=== PATIENT | male | born 2000 | race Caucasian/White ===

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

== ENCOUNTER 2018-05-28 16:12 | Observation (INO) | payer OTHER, SELFPAY ==
[~2018-05-28 16:12] MED LIST: Dexamethasone 20 MG/5 ML VIAL ONE; Glycopyrrolate 0.2 MG/ML 5 ML SYRINGE ONE; Iopamidol 370 76% 100 ML VIAL ONE; Iopamidol 370 76% 50 ML VIAL FS ONE; Ketorolac Tromethamine 30 MG/ML VIAL ONE; Ondansetron PF 4 MG/2 ML Vial ONE; PROPOFOL 200 MG/20 ML VIAL ONE
[2018-05-28 17:45] LABS: #Eosinphils 0.1 thou/uL (0.0-0.7); #Lymphocytes 3.1 thou/uL (1.20-3.40); #Monocytes 0.7 thou/uL (0.11-0.59); #Neutrophils 11.3 thou/uL (1.40-6.50); %Basophils 0.2 % (0.0-1.0); %Eosinophils 0.4 % (0.0-10.0); %Lymphocytes 20.3 % (28.0-48.0); %Monocytes 4.8 % (0.0-4.0); %Neutrophils 74.2 % (31.0-61.0); Hemoglobin 17.4 g/dL (14.0-18.0); Mean Corpuscular HGB CONC 33.3 g/dL (32.0-36.0); Mean Corpuscular Hemoglobin 29.7 pg (25.0-35.0); Mean Platelet Volume 8.4 fL (7.4-10.4); Platelet Count 264 thou/uL (130-400); RBC Distribution Width 12.1 % (11.5-14.5); Red Blood Cell (RBC) Count 5.86 mill/uL (4.00-5.20); White Blood Cell (WBC) Count 15.2 thou/uL (4.8-10.8)
[2018-05-28 18:12] LABS: ALT (SGPT) 20 U/L (8-55); AST (SGOT) 18 U/L (10-45); Albumin 4.7 g/dL (3.5-5.0); Alkaline Phosphatase 66 U/L (Less than 750); Anion Gap 12 mmol/L (10-20); BUN (Urea Nitrogen) 11 mg/dL (8.4-21.0); Bilirubin, Total 0.7 mg/dL (0.2-1.2); Calc. Creatinine Clearance 0 mL/min (70-130); Calcium 9.7 mg/dL (7.8-10.44); Carbon Dioxide 29 mmol/L (22-29); Chloride 102 mmol/L (98-107); Estimated GFR-MDRD Greater than 90; Globulin 2.8 g/dL (2.4-3.5); Glucose 100 mg/dL (70-105); Lipase 12 U/L (8-78); Protein, Total 7.5 g/dL (6.0-8.3); Sodium 139 mmol/L (136-145)
[2018-05-28] MEDS ORDERED: Ondansetron PF 4 MG/2 ML Vial ONE (18:18)
[2018-05-28] MEDS ORDERED: Morphine 4 MG/ML VIAL ONE (18:18)
[2018-05-28 18:30] LABS: Bilirubin Negative (Negative); Blood, Urine Negative (Negative); Clarity CLEAR (Clear); Glucose, Urine (Dipstick) Negative (Negative); Leukocyte Negative (Negative); Nitrite Negative (Negative); Protein, Urine (Dipstick) Negative (Neg-Trace); Specific Gravity, Urine 1.025 (1.002-1.036); pH, Urine 6.5 (5.0-9.0)
--- NOTE | 2018-05-28 21:12 | CT ---
CT ABDOMEN AND PELVIS WITH IV CONTRAST: INDICATIONS: Periumbilical abdominal pain. Concern for appendicitis. FINDINGS: The appendix is enlarged, measuring 9 mm. There is mild periappendiceal fluid. There is enhancement of the appendiceal mucosa. No drainable fluid collection is evident. The lung bases are clear. The liver, spleen, pancreas, adrenal glands, and kidneys are normal appear ing. The bladder, rectum, and perirectal soft tissues are unremarkable. No acute osseous abnormality is evident. IMPRESSION: Findings most consistent with early appendicitis. Findings called to Kamilla Mayo, Nurse Practitioner, at 8:35 p.m. on 05/28/2018. CODE CR POS: [facility]
[2018-05-28] MEDS ORDERED: Ertapenem 1 GM in Sodium Chloride 0.9% 100 ML IVPB SCH (21:15)
[2018-05-28] MEDS ORDERED: Bupivacaine/Epinephrine 0.25% 30 ML VIAL ONE (21:15)
[2018-05-28] MEDS ORDERED: Fentanyl 100 MCG/2 ML VIAL ONE (21:47)
--- NOTE | 2018-05-28 22:45 | HP ---
CHIEF COMPLAINT: Abdominal pain. HISTORY: Mr. Delacruz is a 17-year-old man who started to feel sick earlier this afternoon. He state s that he had , but was feeling nauseated, so he canceled that and lay down to take a nap, only turned over onto his side. He had severe pain in his lower abdomen that woke him from sleep. The pa in has been persistent since that time, so he came to the emergency room and was diagnosed with early appendicitis by CT scan. He has not had any fevers or chills, but he has felt warm. No changes in his bowel habits. No ill contacts or travel. PAST MEDICAL HISTORY: GERD. PAST PSYCHIATRIC HISTORY: Bipolar disorder. FAMILY HISTORY: Pancreatic cancer in his grandfather. His grandmother recently had her appendix out . PAST SURGICAL HISTORY: Tonsillectomy when he was sophomore in high school. No problems with anesthe imelda. ALLERGIES: He has no known drug allergies. DIAGNOSTIC AND LABORATORY DATA: CT images show a dilated enhancing appendix with some periappendicea l stranding and no other acute findings. White count is elevated at 15, hematocrit 52, platelets 264 . Electrolytes and LFTs and lipase are unremarkable and UA is clear. PHYSICAL EXAMINATION: VITAL SIGNS: The patient is afebrile. GENERAL: Reveals a healthy appearing young man in no acute distress. He is not flushed or toxic in appearance. He is not jaundiced or icteric. HEENT: Unremarkable. NECK: Supple without lymphadenopathy or thyroid nodules. HEART: Regular in its rate and rhythm without murmurs, rubs, or gallops. LUNGS: Clear to auscultation bilaterally. ABDOMEN: Soft and nondistended. He indicates the point of greatest pain has just below his umbilicu s, but is most tender to palpation in the right lower quadrant. He does not have any rigidity, rebou nd, or guarding. No palpable masses or hernias. EXTREMITIES: Warm and well perfused without edema. NEUROLOGIC: No focal deficits. PSYCHIATRIC: Alert, oriented, and appropriate. ASSESSMENT: Acute appendicitis. PLAN: Laparoscopic appendectomy. Patient's diagnosis and recommended treatment were discussed with him. Inherent risks were also discussed. These include but are not limited to bleeding, infection, risks of anesthesia, damage to nearby structures including bowel and blood vessels, need for open pat sangeetha, need further procedures. He understands that if there is evidence of perforation and a laparos copic washout and drain placement will be necessary. He will need to stay in the hospital for IV ant ibiotics. If he is not perforated, he may be able to be discharged once his mother arrived from out of town. INVanz has been ordered and he has been placed on the OR schedule.
[2018-05-28] MEDS ORDERED: Promethazine HCl 25 MG/ML VIAL SLOW IVP PRN (23:38)
[2018-05-28] MEDS ORDERED: Promethazine HCl 25 MG/ML VIAL IM PRN (23:38)
[2018-05-28] MEDS ORDERED: Ondansetron HCl/PF 4 MG/2 ML Vial IVP PRN (23:38)
[2018-05-29] MEDS ORDERED: Morphine 4 MG/ML VIAL ONE (00:01)
[2018-05-29] MEDS ORDERED: HYDROcodone/Acetaminophen 7.5/325 mg Tablet PO PRN (00:27)
[2018-05-29] MEDS ORDERED: Acetaminophen 325 MG TAB PO PRN ×2 (00:28→00:29)
[2018-05-29] MEDS ORDERED: Ibuprofen 200 MG TAB PO PRN (00:30)
[2018-05-29] MEDS ORDERED: Ibuprofen 600 MG TAB PO PRN (00:31)
[2018-05-29] MEDS ORDERED: Morphine 2 MG/ML SYRINGE SLOW IVP PRN (00:31)
[2018-05-29] MEDS ORDERED: Morphine 4 MG/ML VIAL IV PRN (00:32)
[2018-05-29] MEDS ORDERED: Ondansetron PF 4 MG/2 ML Vial IVP PRN (00:33)
[2018-05-29] MEDS ORDERED: Promethazine 25 MG TAB PO PRN (00:34)
[2018-05-29] MEDS ORDERED: PACU-Morphine 4MG/ML VIAL SLOW IVP PRN ×2 (00:36→00:37)
[2018-05-29] MEDS: Sodium Chloride 0.9% 1,000 ML IV SCH ×2 (02:00→10:34)
[2018-05-29] MEDS: HYDROcodone/Acetaminophen 7.5/325 mg Tablet PO PRN ×2 (02:39→06:40)
[2018-05-29 08:53] VITALS: BP 121/55; TEMP 98.7
--- NOTE | 2018-06-06 18:01 | PDOC.OP ---
Operative Note - Operative Note Operative Note: PROCEDURE: Laparoscopic appendectomy SURGEON: Moise Glez M.D. DATE OF PROCEDURE: 05/28/2018 PREOPERATIVE DIAGNOSIS: Appendicitis POSTOPERATIVE DIAGNOSIS: Appendicitis HISTORY: Patient is a 18-year-old male who presented to the emergency room with abdominal pain. CT showed evidence of acute appendicitis. FINDINGS: Inflamed retrocecal appendix without perforation. DESCRIPTION OF PROCEDURE: After informed consent was obtained and appropriate antibiotics continued, the patient was taken to the operating room and placed in the supine position and general endotracheal anesthesia was administered. The bladder was decompressed with a Casanova catheter and the abdomen was prepped and draped in the standard sterile fashion. Local anesthesia was infused to the skin and subcutaneous tissues superior to the umbilicus. A transverse skin incision was made and a Veress needle placed into the abdominal cavity and carbon dioxide gas insufflated without difficulty. Opening pressure was less than 5. Carbon dioxide gas was insufflated to an intra-abdominal pressure 15 and the patient tolerated this well. The Veress needle was withdrawn and a Harwood port advanced under direct laparoscopic vision into the abdominal cavity. Two additional ports were placed in the suprapubic and left lateral abdomen under direct laparoscopic vision after local anesthesia was infused at these sites. The appendix was identified and appeared inflamed but not perforated. This was located in the retrocecal area and was quite fixed in location. The appendix was grasped by the mesoappendix and the peritoneum lateral to the appendix was sequentially divided allowing the appendix to be elevated. The mesoappendix was then sequentially ligated and divided down to the base of the appendix, which was normal in appearance and was clearly seen to be at the confluence of the tenia. Two Endoloops were placed around the base of the appendix and the appendix was divided between these Endoloops, placed into an EndoCatch bag and drawn out through the suprapubic incision. The suprapubic trocar was then replaced and the operative site was easily irrigated to clear. The suprapubic trocar was removed and the fascia closed under direct laparoscopic vision with a 0 Vicryl suture on a GraNee needle with excellent technical result. The left lateral trocar was then removed and hemostasis verified. Carbon dioxide gas was desufflated through the umbilical trocar which was then removed. The skin incisions were irrigated and additional local anesthesia infused at each site. The skin was closed with 4-0 subcuticular Monocryl sutures and Dermabond dressings were placed. The patient was extubated and taken to the recovery room in good condition. Estimated blood loss was minimal. There were no complications. SPECIMEN: Appendix.
== END 2018-05-29 11:04 | disposition home or self-care (01) ==
LOC: ERS 16:12 → SDC/OP 22:14 → 3SE 05-29 00:44
PROVIDERS: ADMIT Surgery; ATTEND Surgery
PROC: 0DTJ4ZZ Resection of Appendix, Percutaneous Endoscopic Approach (ICD-10-PCS; principal; 2018-05-29)
DX: K35.80 Unspecified acute appendicitis (principal); K21.9 Gastro-esophageal reflux disease without esophagitis
CPT/HCPCS: 36415; 74177; 80053; 81003; 83605; 83690; 85025; 88304; 96361; 96365; 96374; 96375; 96376; G0378; J1100; J1335; J1885; J2270; J2405; J2704; J3010; J7050

== ENCOUNTER 2018-10-27 00:14 | Emergency (ER) | payer OTHER ==
[2018-10-27 00:57] LABS: #Eosinphils 0.1 thou/uL (0.0-0.7); #Lymphocytes 2.6 thou/uL (1.20-3.40); #Monocytes 0.5 thou/uL (0.11-0.59); #Neutrophils 4.7 thou/uL (1.40-6.50); %Basophils 0.6 % (0.0-1.0); %Eosinophils 0.8 % (0.0-10.0); %Monocytes 5.7 % (0.0-4.0); %Neutrophils 59.9 % (31.0-61.0); Hemoglobin 16.3 g/dL (14.0-18.0); Mean Corpuscular HGB CONC 34.2 g/dL (32.0-36.0); Mean Corpuscular Volume 87.7 fL (78.0-98.0); Mean Platelet Volume 8.4 fL (7.4-10.4); Platelet Count 229 thou/uL (130-400); RBC Distribution Width 11.4 % (11.5-14.5); Red Blood Cell (RBC) Count 5.43 mill/uL (4.00-5.20); White Blood Cell (WBC) Count 7.9 thou/uL (4.8-10.8)
[2018-10-27 01:17] LABS: Bilirubin Negative (Negative); Blood, Urine Negative (Negative); Clarity CLEAR (Clear); Glucose, Urine (Dipstick) Negative (Negative); Leukocyte Negative (Negative); Nitrite Negative (Negative); Protein, Urine (Dipstick) Negative (Neg-Trace); Specific Gravity, Urine 1.014 (1.002-1.036); Urobilinogen 0.2 mg/dL (0.2-1.0)
[2018-10-27 01:22] LABS: ALT (SGPT) 17 U/L (8-55); AST (SGOT) 20 U/L (5-34); Albumin 4.6 g/dL (3.5-5.0); Alcohol 18 mg/dL (Less than 10); Alkaline Phosphatase 54 U/L (Less than 750); Anion Gap 15 mmol/L (10-20); BUN (Urea Nitrogen) 10 mg/dL (8.9-20.6); Bilirubin, Total 1.1 mg/dL (0.2-1.2); Calc. Creatinine Clearance 0 mL/min (70-130); Calcium 9.7 mg/dL (7.8-10.44); Carbon Dioxide 23 mmol/L (22-29); Chloride 103 mmol/L (98-107); Estimated GFR-MDRD Greater than 90; Globulin 2.6 g/dL (2.4-3.5); Glucose 81 mg/dL (70-105); Potassium 3.5 mmol/L (3.5-5.1); Protein, Total 7.2 g/dL (6.0-8.3); Salicylate Less than 8.0 mg/dL (15.0-30.0); Sodium 137 mmol/L (136-145)
[2018-10-27 01:32] LABS: Amphetamine Detected (NotDetected); Barbiturates Screen Not Detected (NotDetected); Benzodiazepine Screen Not Detected (NotDetected); Cocaine Metabolite Screen Not Detected (NotDetected); Medtox Reader # READER 1; Methadone Not Detected (NotDetected); Methamphetamine Detected (NotDetected); Opiate Screen Not Detected (NotDetected); Oxycodone Screen Not Detected (NotDetected); Phencyclidine (PCP) Not Detected (NotDetected); THC/Cannabinoid Screen Not Detected (NotDetected); Tricyclic Screen Not Detected (NotDetected)
[2018-10-27 01:33] LABS: Medtox Control Line Valid? VALID (VALID)
== END 2018-10-27 03:24 ==
LOC: ERS 00:14
DX: T39.312A Poisoning by propionic acid derivatives, intentional self-harm, initial encounter (principal); F32.9 Major depressive disorder, single episode, unspecified; F90.9 Attention-deficit hyperactivity disorder, unspecified type; F43.10 Post-traumatic stress disorder, unspecified; F17.210 Nicotine dependence, cigarettes, uncomplicated; Z79.899 Other long term (current) drug therapy
CPT/HCPCS: 36415; 80053; 80306; 80307; 81003; 82550; 84443; 85025; 93005

== ENCOUNTER 2019-06-04 16:56 | Emergency (ER) | payer OTHER ==
--- NOTE | 2019-06-04 18:03 | CT ---
HEAD CT WITHOUT CONTRAST: 06/04/19 COMPARISON: None. HISTORY: Head trauma, dizziness with confusion and loss of balance. TECHNIQUE: Axial CT imaging at 5 mm intervals from vertex through skull base without contrast. FINDINGS: The visualized paranasal sinuses and mastoid air cells are well aerated. No displaced calvarial fract ure. No intracranial hemorrhage, midline shift, mass effect, or ventricular enlargement. IMPRESSION: No acute findings. POS: [facility]
== END 2019-06-04 20:00 | disposition home or self-care (01) ==
LOC: ERS 16:56
DX: S00.03XA Contusion of scalp, initial encounter (principal); R00.1 Bradycardia, unspecified; F90.9 Attention-deficit hyperactivity disorder, unspecified type; Z79.899 Other long term (current) drug therapy; W20.8XXA Other cause of strike by thrown, projected or falling object, initial encounter
CPT/HCPCS: 70450; 93005

== ENCOUNTER 2019-06-07 17:31 | Emergency (ER) | payer OTHER ==
[2019-06-07] MEDS ORDERED: diphenhydrAMINE 50 MG/ML VIAL ONE (19:01)
[2019-06-07] MEDS ORDERED: Metoclopramide HCl 10 MG/2 ML VIAL ONE (19:01)
[2019-06-07] MEDS ORDERED: Ketorolac Tromethamine 30 MG/ML VIAL ONE (19:01)
[2019-06-07 19:27] LABS: Amphetamine Detected (NotDetected); Barbiturates Screen Not Detected (NotDetected); Benzodiazepine Screen Not Detected (NotDetected); Cocaine Metabolite Screen Not Detected (NotDetected); Medtox Control Line Valid? VALID (VALID); Medtox Reader # READER 1; Methadone Not Detected (NotDetected); Methamphetamine Not Detected (NotDetected); Opiate Screen Not Detected (NotDetected); Oxycodone Screen Not Detected (NotDetected); Phencyclidine (PCP) Not Detected (NotDetected); THC/Cannabinoid Screen Not Detected (NotDetected); Tricyclic Screen Not Detected (NotDetected)
--- NOTE | 2019-06-07 20:52 | CT ---
CT BRAIN WITHOUT CONTRAST: 06/07/19 HISTORY: Headache. Diagnosed with concussion three days ago. FINDINGS: Comparison made with exam of 06/04/19. No evidence of acute infarct, hemorrhage, midline shift or abnormal extra-axial fluid collections are seen. The ventricular size is normal and the basilar cisterns patent. The bony calvarium is intact. There is mucosal disease in the paranasal sinuses and suggestion of fluid in the right maxillary sinu s. IMPRESSION: No CT evidence of acute intracranial process. POS: [facility]
== END 2019-06-07 22:45 | disposition home or self-care (01) ==
LOC: ERS 17:31
DX: S06.0X9A Concussion with loss of consciousness of unspecified duration, initial encounter (principal); F90.9 Attention-deficit hyperactivity disorder, unspecified type; F43.10 Post-traumatic stress disorder, unspecified; F17.210 Nicotine dependence, cigarettes, uncomplicated; Z79.899 Other long term (current) drug therapy; W20.8XXA Other cause of strike by thrown, projected or falling object, initial encounter
CPT/HCPCS: 70450; 80306; 96365; 96375; J1200; J1885; J2765

== ENCOUNTER 2020-10-30 05:08 | Emergency (ER) | payer OTHER | END 2020-10-30 06:30 | disposition home or self-care (01) | LOC: ERS 05:08 | DX: I49.9 Cardiac arrhythmia, unspecified (principal) | CPT/HCPCS: 93005 ==

== ENCOUNTER 2020-11-01 19:47 | Emergency (ER) | payer OTHER ==
[2020-11-01] MEDS ORDERED: Mag-Al 1200 mg/1200 mg/30 ML UDCUP ONE (23:47)
[2020-11-01] MEDS ORDERED: Lidocaine Viscous Sol 2% 15 ml UD Cup ONE (23:47)
[2020-11-02 04:36] LABS: #Lymphocytes 2.3 thou/uL (1.20-3.40); #Monocytes 0.4 thou/uL (0.11-0.59); #Neutrophils 4.3 thou/uL (1.40-6.50); %Basophils 0.7 % (0.0-1.0); %Eosinophils 0.7 % (0.0-10.0); %Lymphocytes 32.3 % (21.0-51.0); %Monocytes 5.6 % (0.0-10.0); %Neutrophils 60.7 % (42.0-75.0); Hemoglobin 16.9 g/dL (14.0-18.0); Mean Corpuscular HGB CONC 35.2 g/dL (32.0-36.0); Mean Corpuscular Hemoglobin 30.5 pg (27.0-31.0); Mean Corpuscular Volume 86.6 fL (78.0-98.0); Mean Platelet Volume 8.8 fL (7.4-10.4); Platelet Count 232 thou/uL (130-400); RBC Distribution Width 11.8 % (11.5-14.5); Red Blood Cell (RBC) Count 5.56 mill/uL (4.70-6.10); White Blood Cell (WBC) Count 7.1 thou/uL (4.8-10.8)
[2020-11-02 04:57] LABS: Bacteria/HPF None Seen HPF (None Seen); Bilirubin Negative (Negative); Blood, Urine Negative (Negative); Clarity Clear (Clear); Glucose, Urine (Dipstick) Normal (Negative); Ketone, Urine 40 mg/dL (Negative); Leukocyte Negative Leu/uL (Negative); Nitrite Negative (Negative); Protein, Urine (Dipstick) Negative (Neg-Trace); RBC/HPF 0-3 HPF (0-3); Specific Gravity, Urine 1.023 (1.002-1.036); Squamous Epithelial None Seen HPF (0-3); Urobilinogen Normal mg/dL (Less than 2); WBC/HPF 0-3 HPF (0-3)
[2020-11-02 05:11] LABS: Amphetamine Not Detected (NotDetected); Barbiturates Screen Not Detected (NotDetected); Benzodiazepine Screen Not Detected (NotDetected); Cocaine Metabolite Screen Not Detected (NotDetected); Medtox Reader # READER 4; Methadone Not Detected (NotDetected); Methamphetamine Not Detected (NotDetected); Opiate Screen Not Detected (NotDetected); Oxycodone Screen Not Detected (NotDetected); Phencyclidine (PCP) Not Detected (NotDetected); THC/Cannabinoid Screen Detected (NotDetected); Tricyclic Screen Not Detected (NotDetected)
[2020-11-02 05:12] LABS: Medtox Control Line Valid? VALID (VALID)
[2020-11-02 07:43] LABS: ALT (SGPT) 19 U/L (8-55); AST (SGOT) 22 U/L (5-34); Acetaminophen Less than 6.0 mcg/mL (10.0-30.0); Albumin 4.8 g/dL (3.5-5.0); Alcohol Less than 10 mg/dL (Less than 10); Alkaline Phosphatase 54 U/L (40-110); Anion Gap 11 mmol/L (10-20); BUN (Urea Nitrogen) 11 mg/dL (8.9-20.6); Bilirubin, Total 1.2 mg/dL (0.2-1.2); CK (CPK) 225 U/L (30-200); Calc. Creatinine Clearance 0 mL/min (70-130); Calcium 9.1 mg/dL (7.8-10.44); Carbon Dioxide 27 mmol/L (22-29); Chloride 103 mmol/L (98-107); Globulin 2.5 g/dL (2.4-3.5); Glucose 89 mg/dL (70-105); Magnesium 1.8 mg/dL (1.6-2.6); Potassium 3.4 mmol/L (3.5-5.1); Protein, Total 7.3 g/dL (6.0-8.3); Salicylate Less than 8.0 mg/dL (15.0-30.0); Sodium 138 mmol/L (136-145)
[2020-11-02 07:44] LABS: CKMB 1.1 ng/mL (0-6.6); Troponin I Less than 0.010 ng/mL (< 0.028)
[2020-11-02 07:46] LABS: HIV (1/2) Antibody/Antigen NonReactive (NonReactive); HIV 1/2 INDEX 0.23 S/CO (<1.00)
[2020-11-02 09:35] LABS: Thyroid Stimulating Hormone 1.3106 uIU/mL (0.35-4.94)
== END 2020-11-02 02:48 | disposition home or self-care (01) ==
LOC: ERS 19:47
DX: R07.89 Other chest pain (principal); F17.290 Nicotine dependence, other tobacco product, uncomplicated
CPT/HCPCS: 71045; 80053; 80306; 80307; 81003; 82550; 82553; 83735; 84443; 84484; 85025; 87389; 93005; 94760